=== PATIENT | male | born 1960 | race Two or more races ===

== ENCOUNTER 2020-07-15 18:04 | Inpatient (IN) | payer SELFPAY ==
[~2020-07-15] VITALS: Ht 170.2 cm; Wt 98.9 kg
[2020-07-15] MEDS: ENOXAPARIN SODIUM 40 MG/0.4 ML DISP.SYRIN SQ SCH (00:29)
--- NOTE | 2020-07-15 18:10 | NUR ---
PARISH FROM HOME C/O SOB THE WHOLE DAY WORST WHEN AMBULATING. PATIENT A/OX2, WITH EPISODES OF CONFUSION. OCCITAN SPEAKING. CHANGED INTO A GOWN, ATTACHED TO THE STEREOTYPER HELPER. SPO2 92% ON ROOM AIR.
[2020-07-15] MEDS ORDERED: ACETAMINOPHEN 325 MG TABLET ONE (18:24)
[2020-07-15] MEDS ORDERED: AZITHROMYCIN 500 MG VIAL ONE (18:24)
[2020-07-15] MEDS ORDERED: CEFTRIAXONE 1GM BAG (ER ONLY) 50 ML IV ONE (18:24)
--- NOTE | 2020-07-15 18:25 | NUR ---
IV LINE ESTABLISHED, BLOOD DRAWN AND SENT TO LAB.
[2020-07-15 18:29] LABS: BASOPHILS % (AUTO) 0.3 % (0.0-2.0); HEMATOCRIT 37 % (39-51); HEMOGLOBIN 12.5 g/dL (13.5-17.5); LYMPHOCYTES # (AUTO) 0.6 /CMM (0.8-4.8); LYMPHOCYTES % (AUTO) 4.2 % (20.0-44.0); MEAN CORPUSCULAR HGB CONC 34 g/dl (31.0-36.0); MEAN CORPUSCULAR VOLUME 94 fL (80-96); MONOCYTES # (AUTO) 0.7 /CMM (0.1-1.30); MONOCYTES % (AUTO) 4.6 % (2.0-12.0); NEUTROPHILS # (AUTO) 13.3 /CMM (1.8-8.9); NEUTROPHILS % (AUTO) 90.9 % (43.0-81.0); PLATELET COUNT (AUTO) 109 /CMM (150-450); RED BLOOD CELL COUNT(AUTO) 3.97 MIL/uL (4.5-6.0); WHITE BLOOD COUNT (AUTO) 14.6 K/uL (4.3-11.0)
[2020-07-15] MEDS ORDERED: ACETAMINOPHEN 325 MG TABLET PO ONE (18:30)
[2020-07-15] MEDS ORDERED: AZITHROMYCIN 500 MG in IV D5W 250 ML IV ONE (18:30)
[2020-07-15] MEDS ORDERED: CEFTRIAXONE 1GM BAG (ER ONLY) 1 GM/50 ML PIGGYBACK IV ONE (18:30)
[2020-07-15 18:46] LABS: CALCIUM, SERUM 8.6 mg/dL (8.5-10.1); CARBON DIOXIDE 23 mmol/L (21-32); CHLORIDE 90 mmol/L (98-107); CREATININE 1.2 mg/dL (0.6-1.3); GLUCOSE 225 mg/dL (74-106); POTASSIUM 2.9 mmol/L (3.5-5.1); SODIUM SERUM 126 mmol/L (136-145); UREA NITROGEN, BLOOD 16 mg/dL (7-18)
[2020-07-15 18:52] LABS: ALANINE AMINOTRANSFERASE 42 U/L (12-78); ALBUMIN 2.7 g/dL (3.4-5.0); ALKALINE PHOSPHATASE 92 U/L (46-116); ASPARTATE AMINOTRANSFERASE 106 U/L (15-37); BILIRUBIN,DIRECT 0.5 mg/dL (0.0-0.2); LIPASE 547 U/L (73-393); TOTAL PROTEIN, SERUM 7.9 g/dL (6.4-8.2)
[2020-07-15 18:58] LABS: B-TYPE NATRIURETIC PEPTIDE 739 PG/ML (0-125)
[2020-07-15] MEDS ORDERED: IV NS 0.9% 1,000 ML BAG IV ONE (19:30)
[2020-07-15] MEDS: Magnesium 1GM/D5W 100ML PREMIX 100 ML IV SCH ×2 (19:40→20:38)
--- NOTE | 2020-07-15 19:40 | NUR ---
A NEW 18G PIV LINE STARTED ON L HAND W/ GOOD BLOOD RETURN. MG IV STARTED ORDERED . WILL CONT TO MONITOR,
--- NOTE | 2020-07-15 20:00 | NUR ---
PT REMOVED THE IV LINE ON L HAND. A NEW IV LINE STARTED ON R HAND. WILL CONT TO MONITOR ,
--- NOTE | 2020-07-15 20:11 | NUR ---
RT AT BED SIDE TO PLACE PT ON BIPAP
[2020-07-15] MEDS: POTASSIUM CL. PREMIX PERIPHER. 50 ML IV SCH ×4 (20:13→23:12)
[2020-07-15] MEDS ORDERED: POTASSIUM CL. PREMIX PERIPHER. 100 ML ONE (22:24)
[2020-07-15] MEDS ORDERED: ACETAMINOPHEN 325 MG TABLET PO PRN (23:00)
[2020-07-15] MEDS ORDERED: ONDANSETRON HCL/PF 4 MG/2 ML VIAL IVP PRN (23:00)
[2020-07-15] MEDS ORDERED: MAGNESIUM HYDROXIDE 30 ML UDC PO PRN (23:00)
[2020-07-15] MEDS ORDERED: MAG HYDROX/AL HYDROX/SIMETH 30 ML UDC PO PRN (23:00)
[2020-07-15] MEDS ORDERED: Z GUARD REMEDY 2 OZ OINT TP PRN (23:00)
[2020-07-15] MEDS ORDERED: ZOLPIDEM TARTRATE 5 MG TABLET PO PRN (23:00)
[2020-07-15] MEDS ORDERED: HYDROCODONE/APAP 5/325MG TABLET PO PRN (23:00)
--- NOTE | 2020-07-15 23:00 | NUR ---
RT EKG DONE ON PT, RESULTS GIVEN TO NORA DEY
--- NOTE | 2020-07-15 23:17 | NUR ---
CALLED AFTER HOUR PHARMACY TO VERIFY THE ADMITTING ORDERS
[2020-07-16] MEDS ORDERED: ENOXAPARIN SODIUM 40 MG/0.4 ML DISP.SYRIN SQ ONE (00:25)
--- NOTE | 2020-07-16 02:49 | NUR ---
pt was taken off of the BIPAP and placed on O2 at 10 LPM via simple fac mask. will cont to monitor and reevaluate the pt.
[2020-07-16 05:14] LABS: BASOPHILS % (AUTO) 0.2 % (0.0-2.0); HEMATOCRIT 36 % (39-51); HEMOGLOBIN 12.2 g/dL (13.5-17.5); LYMPHOCYTES # (AUTO) 0.5 /CMM (0.8-4.8); LYMPHOCYTES % (AUTO) 3.7 % (20.0-44.0); MEAN CORPUSCULAR HGB CONC 34 g/dl (31.0-36.0); MEAN CORPUSCULAR VOLUME 94 fL (80-96); MONOCYTES # (AUTO) 0.9 /CMM (0.1-1.30); MONOCYTES % (AUTO) 6.6 % (2.0-12.0); NEUTROPHILS # (AUTO) 11.9 /CMM (1.8-8.9); NEUTROPHILS % (AUTO) 89.5 % (43.0-81.0); PLATELET COUNT (AUTO) 109 /CMM (150-450); RED BLOOD CELL COUNT(AUTO) 3.88 MIL/uL (4.5-6.0); WHITE BLOOD COUNT (AUTO) 13.3 K/uL (4.3-11.0)
--- NOTE | 2020-07-16 05:15 | NUR ---
RT ORDERED EKG Q6 COMPLETED. PRINT OUT OF RESULTS GIVEN TO NORA DEY.
[2020-07-16 05:36] LABS: CALCIUM, SERUM 8.9 mg/dL (8.5-10.1); CREATININE 0.9 mg/dL (0.6-1.3); MAGNESIUM 2.4 mg/dL (1.8-2.4); PHOSPHORUS 2.6 mg/dL (2.5-4.9); POTASSIUM 3.6 mmol/L (3.5-5.1)
[2020-07-16 05:41] LABS: THYROID STIMULATING HORMONE 1.767 uIU/mL (0.358-3.74)
--- NOTE | 2020-07-16 06:40 | NUR ---
PT WAS TRANSFERRED TO [facility] UNDER ACLS
[2020-07-16 06:45] VITALS: BP 176/90
--- NOTE | 2020-07-16 06:46 | NUR ---
TELE-TD/CORE PASTER RECEIVED PT ACCOMPANIED BY ER STAFF TO ROOM 113-1. PT WAS ABLE TO TRANSFER HIMSELF FROM [facility] TO BED WITH SOME COACHING. PT IS AUDIBLY WHEEZING. RESPIRATORY RATE IS ELEVATED AND SLIGHTLY LABORED. PT IS ALSO NOTED TO BE DIAPHORETIC. PT IS ON 10L SIMPLE MASK. SPO2 100% AT THIS TIME. PT PLACED IN HOSPITAL GOWN. PLACED ON TELE MONITOR NORMAL SINUS RHYTHM. BED IN LOWEST LOCKED POSITION. SIDE RAILS UP. BED ALARM ON WILL CONTINUE TO MONITOR.
--- NOTE | 2020-07-16 07:34 | NUR ---
YOUSUF RN NOTE PATIENT IN BED AWAKE ALERT WITH CONFUSION , ON 10 SIMPLE MASK ,SATURATION 96% NOTED WITH CHEST CONGESTION ,ON TELE MONITOR HR 96, RT AC HL INTACT AND FLUSHED WELL BED IN LOWEST AND LOCKED POSITION NOTED WITH LABORED RESPIRATION BED IN LOWEST AND LOCKED POSITION , PLAN OF CARE DISCUSSED WITH PATIENT, CHEST X RAY DONE ORDERED , CALL LIGHT WITHIN REACH
[2020-07-16] MEDS: PANTOPRAZOLE 40 MG TABLET.DR PO SCH (07:47)
[2020-07-16 08:00] VITALS: BP 152/88
--- NOTE | 2020-07-16 09:01 | NUR ---
telephone exchange operator note rt at bedside stated that will do abg latter om patient feels a little better ,placed on 4l nc saturation 96% ,will monitor
--- NOTE | 2020-07-16 09:37 | NUR ---
YOUSUF RN NOTE SEEN BY DR BRICENO AND DR RIVERA AWARE THAT PATIENT HAS SEVERE CHEST CONGESTION
[2020-07-16] MEDS: DEXAMETHASONE SOD PHOSPHATE 10 MG/ML VIAL IV SCH (09:50)
[2020-07-16] MEDS: FUROSEMIDE 40 MG/4 ML VIAL IV SCH ×3 (09:50→17:37)
[2020-07-16] MEDS: POTASSIUM CHLORIDE 20 MEQ TAB.PRT.SR PO SCH ×3 (09:51→12:14)
--- NOTE | 2020-07-16 11:10 | NUR ---
stephan rn note seen by dr Pearson show aware of severe chest congestion and need admission orders
--- NOTE | 2020-07-16 11:45 | NUR ---
stephan rn note Michel avendano clinical research coordinator aware that urine is dark yasmin color ,no new order given at this time with dvt pumps placed as ordered
[2020-07-16 12:00] VITALS: BP 130/91
[2020-07-16] MEDS: LORAZEPAM INJ 2 MG/ML VIAL IV PRN ×2 (13:06→21:59)
--- NOTE | 2020-07-16 13:30 | NUR ---
YOUSUF RN NOTE PER JONATHAN MELENDEZ SALES AND IN HOME DELIVERY SPECIALIST OK TO GIVE ATIVAN 1 MG IV ,PATIENT HAS ALCOHOL WITHDRAWAL SYMPTOMS , PER RN MARGRET CASTILLO PATIENT DRINKS BEER EVERY DAY , BP 148/78 ,SATURATION 97% WILL MONITOR
--- NOTE | 2020-07-16 14:42 | NUR ---
YOUSUF RN NOTE 2D ECHO DONE ORDERED
--- NOTE | 2020-07-16 15:00 | NUR ---
YOUSUF MELENDEZ NOTE CALLED TO JONATHAN MELENDEZ SUSPENSION CORD TIER NOTIFIED THAT PER LAB PRELIMINARY REPORT BLOOD CX GRAM POSITIVE COCCI IN CHAIN WITH ORDER TO CALL MANDIE MELENDEZ ID ,WILL F\U
--- NOTE | 2020-07-16 15:30 | NUR ---
YOUSUF MELENDEZ NOTE CALLED TO MANDIE MELENDEZ NP INFECTION DISEASE PER JONATHAN MUÑOZ RN MEDICAL RECORD CLERK FOR ID CONSULT STATED THAT WILL COME SOON Addendum: 07/16/20 at 1543 by MARLENE DIEZ RN UNABLE TO COLLECT UA SPECIMEN PATIENT STATED THAT CANT URINATE AT THIS TIME, NO STRAIGHT CATH PER JONATHAN MELENDEZ MEDICAL RECORD CLERK , WILL CONT TO TRY TO GET UA
[2020-07-16 16:06] VITALS: BP 110/80
[2020-07-16] MEDS: CHLORDIAZEPOXIDE HCL 25 MG CAPSULE PO SCH (16:51)
[2020-07-16] MEDS: CEFTRIAXONE 1 G in IV D5W 50 ML IV SCH (17:14)
--- NOTE | 2020-07-16 17:15 | NUR ---
YOUSUF RN NOTE UA COLLECTED ORDERED ,KEEP CLEAN DRY ,CALLED LAB TO INSTRUMENTATION AND CONTROL TECHNICIAN UA SPECIMEN
[2020-07-16] MEDS: AZITHROMYCIN 500 MG in IV D5W 250 ML IV SCH (17:47)
--- NOTE | 2020-07-16 18:19 | NUR ---
YOUSUF RN NOTE OK TO PLACE CONDOM CATH TO MONITOR URINE OUT PUT PER JONATHAN MELENDEZ IT CORPORATE RECRUITER
[2020-07-16 18:44] LABS: BILIRUBIN,URINE NEGATIVE (NEGATIVE); COLOR,URINE YELLOW (YELLOW); LEUKOCYTE ESTERASE ,URINE NEGATIVE (NEGATIVE); NITRITE, URINE NEGATIVE (NEGATIVE); PH,URINE 5.5 (5.0-8.0); PROTEIN,URINE 30 mg/dl (NEGATIVE); UGLUCOSE NEGATIVE (NEGATIVE)
--- NOTE | 2020-07-16 19:50 | NUR ---
RN OPENING NOTES RECEIVED PT IN BED. A/O X 1 CONFUSED, COOPERATIVE. PT IS ON 4L OF OXYGEN VIA NASAL CANNULA, TOLERATING WELL. SATURATION IS 96% AT THIS TIME. PT IS NOT IN ANY RESP DISTRESS NOT EXPERIENCING SOB. PT IS SHAKING SLIGHTLY, BASELINE TO PT. IV SITE IS FLUSHED, RIGHT AC AND RIGHT HAND. NO S/S OF INFILTRATION NOTED. SAFETY MEASURES IN PLACE, ISOLATION PER R/O COVID PRECAUTIONS, HEAD OF BED ELEVATED. SIDE RAILS UP X2. BED LOCKED IN LOWEST POSITION BED ALARM ON. CALL LIGHT WITHIN REACH. WILL CONT TO MONITOR.
--- NOTE | 2020-07-16 19:50 | NUR ---
RN OPENING NOTES RECEIVED PT IN BED. A/O X1, CONFUSED, ON 4L VIA NASAL CANNULA. TOLERATING WELL. NO SOB OR RESPIRATORY DISTRESS NOTED AT THIS TIME. PT SATURATING AT 96% PT IS ON TELE MONITOR PT HR 85. PT HAS IV ON RIGHT AC AND RIGHT HAND, FLUSHED. NO S/S OF INFILTRATION. PT DENIES PAIN AT THIS TIME. GENERALIZED, SLIGHT SHAKINESS NOTED. BASELINE TO PT HX OF ALCOHOL USE. WITHDRAWAL PRECAUTIONS IN PLACE. SAFETY MEASURES IN PLACE, HOB ELEVATED TOLERATED. BED LOCKED IN LOWEST POSITION. SIDE RAILS UP X2. CALL LIGHT WITHIN REACH. WILL CONT TO MONITOR. Addendum: 07/17/20 at 0005 by ELLE LOPEZ RN DISREGARD THIS NOTE
[2020-07-16 19:51] LABS: BACTERIA,URINE RARE /HPF (None Seen); WBC,URINE 0-2 /HPF (0-3)
[2020-07-16 19:52] LABS: HYALINE CASTS, URINE RARE /LPF (None Seen)
[2020-07-16 20:00] VITALS: BP 136/83
[2020-07-16] MEDS ORDERED: IV NS 0.9% 1,000 ML IV ONE (20:00)
[2020-07-16 20:39] LABS: SQUAMOUS EPITHELIAL CELL,UR 0-2 /HPF (None Seen)
[2020-07-16] MEDS: ENOXAPARIN SODIUM 40 MG/0.4 ML DISP.SYRIN SQ SCH (21:16)
--- NOTE | 2020-07-16 22:06 | NUR ---
PRN ATIVAN ADMINISTERED D/T PT AGITATED AND RESTLESS, CONFUSED HX OF ALCOHOL CONSUMPTION/WITHDRAWAL SYMPTOMS. WILL CONT TO CLOSELY MONITOR. PT O2 SAT 96% BP 136/83
[2020-07-17] VITALS: BP 156/93
--- NOTE | 2020-07-17 00:09 | NUR ---
LAB RESULTS REPORTED VIA JO, PCR INDETERMINATE. NOTIFIED SERVICES CLERK DR LLANOS, ORDER FOR REPEAT CARRIED OUT.
[2020-07-17 04:00] VITALS: BP 149/95
[2020-07-17 06:09] LABS: BASOPHILS % (AUTO) 0.4 % (0.0-2.0); HEMATOCRIT 38 % (39-51); HEMOGLOBIN 12.8 g/dL (13.5-17.5); LYMPHOCYTES # (AUTO) 0.5 /CMM (0.8-4.8); LYMPHOCYTES % (AUTO) 4.6 % (20.0-44.0); MEAN CORPUSCULAR HGB CONC 34 g/dl (31.0-36.0); MEAN CORPUSCULAR VOLUME 94 fL (80-96); MONOCYTES # (AUTO) 0.7 /CMM (0.1-1.30); NEUTROPHILS # (AUTO) 9.2 /CMM (1.8-8.9); PLATELET COUNT (AUTO) 172 /CMM (150-450); RED BLOOD CELL COUNT(AUTO) 4.01 MIL/uL (4.5-6.0); WHITE BLOOD COUNT (AUTO) 10.5 K/uL (4.3-11.0)
[2020-07-17 06:33] LABS: ALBUMIN 2.3 g/dL (3.4-5.0); BILIRUBIN,TOTAL 0.6 mg/dL (0.2-1.0); CALCIUM, SERUM 9.1 mg/dL (8.5-10.1); CREATININE 0.8 mg/dL (0.6-1.3); MAGNESIUM 2.5 mg/dL (1.8-2.4); PHOSPHORUS 3.8 mg/dL (2.5-4.9); POTASSIUM 4.2 mmol/L (3.5-5.1); TOTAL PROTEIN, SERUM 7.9 g/dL (6.4-8.2)
--- NOTE | 2020-07-17 06:36 | NUR ---
RN CLOSING NOTES PT REMAINS IN BED, NO CHANGE IN PT CONDITION, PT IS VERY AGITATED WHEN INITIALLY WOKEN UP FROM SLEEPING, ATIVAN PRN ADMINISTERED. STILL IS CONFUSED BUT PT IS COOPERATIVE OVERALL, ALL DUE MEDS GIVEN, NEEDS ATTENDED. SAFETY MEASURES IN PLACE. HOB ELEVATED. SIDE RAILS X2, BED LOCKED IN LOWEST POSITION WITH BED ALARM SENIOR ANIMATOR LIGHT WITHIN REACH. WILL ENDORSE TO DAY NURSE FOR CONTINUATION OF CARE.
--- NOTE | 2020-07-17 07:25 | NUR ---
RN OPENING NOTES PATIENT RECEIVED IN BED RESTING COMFORTABLE. PATIENT IS ON O2 THERAPY VIA NC AT 4 LPM TOLERATING WELL. SAFETY MEASURES IMPLEMENTED. HOB ELEVATED. SIDE RAILS UP X2, BED LOCKED IN LOWEST POSITION, CALL LIGHT WITHIN REACH. WILL CONTINUE TO MONITOR AND PROVIDE CARE THROUGHOUT SHIFT.
[2020-07-17 08:00] VITALS: BP 127/88
[2020-07-17] MEDS: PANTOPRAZOLE 40 MG TABLET.DR PO SCH (08:59)
[2020-07-17] MEDS: FOLIC ACID 1 MG TABLET PO SCH (09:00)
[2020-07-17] MEDS: DEXAMETHASONE SOD PHOSPHATE 10 MG/ML VIAL IV SCH (09:00)
[2020-07-17] MEDS: THIAMINE HCL 100 MG TABLET PO SCH (09:01)
[2020-07-17] MEDS: CHLORDIAZEPOXIDE HCL 25 MG CAPSULE PO SCH ×2 (09:01→16:18)
[2020-07-17 12:00] VITALS: BP 126/86
[2020-07-17 16:00] VITALS: BP 138/81
[2020-07-17] MEDS: CEFTRIAXONE 1 G in IV D5W 50 ML IV SCH (17:02)
[2020-07-17] MEDS: AZITHROMYCIN 500 MG in IV D5W 250 ML IV SCH (17:54)
--- NOTE | 2020-07-17 19:15 | NUR ---
RN CLOSING NOTES PATIENT IN BED RESTING COMFORTABLY. PATIENT IS ON O2 THERAPY VIA NC AT 4 LPM TOLERATING WELL. SAFETY MEASURES IMPLEMENTED. HOB ELEVATED. SIDE RAILS UP X2, BED LOCKED IN LOWEST POSITION, CALL LIGHT WITHIN REACH. WILL ENDORSE CARE TO UPCOMING SHIFT.
[2020-07-17 20:00] VITALS: BP 137/71
[2020-07-17] MEDS: ENOXAPARIN SODIUM 40 MG/0.4 ML DISP.SYRIN SQ SCH (21:33)
[2020-07-18] VITALS: BP 130/78
[2020-07-18 04:00] VITALS: BP 125/82
[2020-07-18 06:32] LABS: BASOPHILS % (AUTO) 0.3 % (0.0-2.0); EOSINOPHILS % (AUTO) 0.1 % (0.0-6.0); HEMATOCRIT 38 % (39-51); HEMOGLOBIN 12.8 g/dL (13.5-17.5); LYMPHOCYTES # (AUTO) 0.7 /CMM (0.8-4.8); LYMPHOCYTES % (AUTO) 8.2 % (20.0-44.0); MEAN CORPUSCULAR HGB CONC 34 g/dl (31.0-36.0); MEAN CORPUSCULAR VOLUME 94 fL (80-96); MONOCYTES # (AUTO) 0.7 /CMM (0.1-1.30); MONOCYTES % (AUTO) 8.7 % (2.0-12.0); NEUTROPHILS # (AUTO) 6.8 /CMM (1.8-8.9); NEUTROPHILS % (AUTO) 82.7 % (43.0-81.0); PLATELET COUNT (AUTO) 203 /CMM (150-450); RED BLOOD CELL COUNT(AUTO) 4.05 MIL/uL (4.5-6.0); WHITE BLOOD COUNT (AUTO) 8.2 K/uL (4.3-11.0)
[2020-07-18 06:51] LABS: CALCIUM, SERUM 8.9 mg/dL (8.5-10.1); CREATININE 0.7 mg/dL (0.6-1.3); MAGNESIUM 2.2 mg/dL (1.8-2.4)
--- NOTE | 2020-07-18 07:30 | NUR ---
TELEMETRY OPENING NOTES PATIENT IN BED, RESTING COMFORTABLY. ALERT/ORIENTED X2-3; ABLE TO MAKE NEEDS KNOWN. CURRENTLY ON 4L O2 THERAPY VIA NASAL CANNULA. O2 SATURATION 98%. NO S/S OF RESPIRATORY DISTRESS AT THIS TIME. SKIN INTACT. PATIENT IS ON A CARDIAC DIET. R WRIST 20 G IV NOTED. ALL SAFETY MEASURES IN PLACE PER HOSPITAL POLICY. CALL LIGHT WITHIN REACH. BED LOCKED IN LOWEST POSITION, WILL CONTINUE TO MONITOR AND PROVIDE TREATMENT.
[2020-07-18 08:00] VITALS: BP 150/88
[2020-07-18] MEDS: THIAMINE HCL 100 MG TABLET PO SCH (08:32)
[2020-07-18] MEDS: PANTOPRAZOLE 40 MG TABLET.DR PO SCH (08:32)
[2020-07-18] MEDS: CHLORDIAZEPOXIDE HCL 25 MG CAPSULE PO SCH ×2 (08:32→16:41)
[2020-07-18] MEDS: FOLIC ACID 1 MG TABLET PO SCH (08:32)
[2020-07-18] MEDS: DEXAMETHASONE SOD PHOSPHATE 10 MG/ML VIAL IV SCH (08:33)
[2020-07-18] MEDS ORDERED: IV NS 0.9% 1,000 ML IV ONE (14:30)
[2020-07-18] MEDS: ERYTHROMYCIN BASE OPHTH 3.5 GM TUBE EACHEYE SCH ×2 (15:38→20:15)
[2020-07-18 16:00] VITALS: BP 123/75
[2020-07-18] MEDS: AZITHROMYCIN 500 MG in IV D5W 250 ML IV SCH (17:23)
[2020-07-18] MEDS: CEFTRIAXONE 1 G in IV D5W 50 ML IV SCH (17:23)
--- NOTE | 2020-07-18 18:37 | NUR ---
TELEMETRY OPENING NOTES PATIENT IN BED, RESTING COMFORTABLY. ALERT/ORIENTED X2-3; ABLE TO MAKE NEEDS KNOWN. CURRENTLY ON 4L O2 THERAPY VIA NASAL CANNULA. O2 SATURATION 98%. NO S/S OF RESPIRATORY DISTRESS AT THIS TIME. SKIN INTACT. PATIENT IS ON A CARDIAC DIET. R FOREARM IV 22 G RUNNING NORMAL SALINE @ 80ML/HR. ALL SAFETY MEASURES IN PLACE PER HOSPITAL POLICY. CALL LIGHT WITHIN REACH. BED LOCKED IN LOWEST POSITION, WILL ENDORSE TO ASSISTED LIVING DIRECTOR NURSE FOR CONTINUATION OF CARE.
--- NOTE | 2020-07-18 19:25 | NUR ---
MS1 RN NOTES RECEIVED AWAKE,SITTING ON EDGE OF BED EATING HIS DINNER FOOD,O2 IN USED AT 4L/NC TO KEEP O2 SAT ABOVE 90%.AMBULATE WITH STEADY GAIT,IVF NS AT 80ML/HR RATE INFUSING WELL ON RFA SALINE LOCK VIA IV PUMP,SITE PATENT.FALL RISK,BED ALARM TRIGGERED.CALL LIGHT IN REACH,NEEDS ANTICIPATED.
[2020-07-18 20:00] VITALS: BP 154/77
[2020-07-18] MEDS: ENOXAPARIN SODIUM 40 MG/0.4 ML DISP.SYRIN SQ SCH (21:35)
--- NOTE | 2020-07-19 03:00 | NUR ---
MS1 RN NOTES PRESENT IVF COMPLETED
[2020-07-19] MEDS: ERYTHROMYCIN BASE OPHTH 3.5 GM TUBE EACHEYE SCH ×4 (03:05→21:13)
--- NOTE | 2020-07-19 03:09 | NUR ---
MS1 RN NOTES AWAKE,DUE ERYTHROMYCIN EYE OINTMENT ADMINISTERED TO BOTH EYES.
[2020-07-19 04:00] VITALS: BP 154/94
--- NOTE | 2020-07-19 06:21 | NUR ---
MS1 RN NOTES SLEPT WITH INTERVALS,ABLE TO AMBULATE TO THE RESTROOM WITH STANDBY ASSIST.NO EPISODE OF SOB NOTED.IVF COMPLETED.CALL LIGHT IN REACH,NEEDS ATTENDED.
[2020-07-19 06:51] LABS: BASOPHILS # (AUTO) 0.2 /CMM (0.0-0.2); BASOPHILS % (AUTO) 2.7 % (0.0-2.0); EOSINOPHILS % (AUTO) 0.4 % (0.0-6.0); HEMATOCRIT 39 % (39-51); HEMOGLOBIN 13.1 g/dL (13.5-17.5); LYMPHOCYTES # (AUTO) 0.6 /CMM (0.8-4.8); LYMPHOCYTES % (AUTO) 9.5 % (20.0-44.0); MEAN CORPUSCULAR HGB CONC 33 g/dl (31.0-36.0); MEAN CORPUSCULAR VOLUME 95 fL (80-96); MONOCYTES # (AUTO) 0.8 /CMM (0.1-1.30); MONOCYTES % (AUTO) 12.6 % (2.0-12.0); NEUTROPHILS # (AUTO) 4.8 /CMM (1.8-8.9); NEUTROPHILS % (AUTO) 74.8 % (43.0-81.0); PLATELET COUNT (AUTO) 229 /CMM (150-450); RED BLOOD CELL COUNT(AUTO) 4.15 MIL/uL (4.5-6.0); WHITE BLOOD COUNT (AUTO) 6.4 K/uL (4.3-11.0)
--- NOTE | 2020-07-19 07:20 | NUR ---
RN OPENING NOTES PATIENT RECEIVED IN BED RESTING COMFORTABLY. PATIENT IS ON O2 THERAPY VIA NC AT 4 LPM TOLERATING WELL. IV ACCESS INTACT AND PATENT. SAFETY MEASURES IMPLEMENTED. HOB ELEVATED. SIDE RAILS UP X2, BED LOCKED IN LOWEST POSITION, CALL LIGHT WITHIN REACH. WILL CONTINUE TO MONITOR AND PROVIDE CARE THROUGHOUT SHIFT.
[2020-07-19 08:46] LABS: CALCIUM, SERUM 8.7 mg/dL (8.5-10.1); CREATININE 0.7 mg/dL (0.6-1.3); POTASSIUM 3.9 mmol/L (3.5-5.1)
[2020-07-19] MEDS: PANTOPRAZOLE 40 MG TABLET.DR PO SCH (09:33)
[2020-07-19] MEDS: DEXAMETHASONE SOD PHOSPHATE 10 MG/ML VIAL IV SCH (09:33)
[2020-07-19] MEDS: FOLIC ACID 1 MG TABLET PO SCH (09:34)
[2020-07-19] MEDS: CHLORDIAZEPOXIDE HCL 25 MG CAPSULE PO SCH (09:35)
[2020-07-19] MEDS: THIAMINE HCL 100 MG TABLET PO SCH (09:35)
[2020-07-19 12:00] VITALS: BP 121/71
[2020-07-19] MEDS: CEFTRIAXONE 1 G in IV D5W 50 ML IV SCH (17:01)
--- NOTE | 2020-07-19 18:57 | NUR ---
RN CLOSING NOTES PATIENT IN BED RESTING COMFORTABLY. PATIENT IS ON O2 THERAPY VIA NC AT 2 LPM. PATIENT TITRATED DOWN, TOLERATING WELL. IV ACCESS INTACT AND PATENT. SAFETY MEASURES IMPLEMENTED, HOB ELEVATED. SIDE RAILS UP X2, BED LOCKED IN LOWEST POSITION, CALL LIGHT WITHIN REACH. WILL ENDORSE CARE TO UPCOMING SHIFT.
--- NOTE | 2020-07-19 19:45 | NUR ---
RN NOTES RECEIVED PT WALKING AROUND THE ROOM, STABLE GAIT. DENIES ANY SOB OR DIZZINESS. NOT IN ANY DISTRESS. ASSISTED BACK TO BED. PUT ON O2 VIA NC AT 2LPM. PT DENIES ANY PAIN ELSEWHERE. PT WITH RIGHT WRIST AND RFA IV. BOTH PATENT AND INTACT, WITH NO SIGNS OF INFECTION. WILL CONTINUE TO MONITOR, ALL SAFETY MEASURES IMPLEMENTED PER PROTOCOL, CALL LIGHT WITHIN REACH, BED LOCKED IN LOWEST POSITION. SIDE RAILS UP X 2.
[2020-07-19 20:00] VITALS: BP 129/79
[2020-07-19] MEDS: ENOXAPARIN SODIUM 40 MG/0.4 ML DISP.SYRIN SQ SCH (21:29)
[2020-07-20] MEDS: ERYTHROMYCIN BASE OPHTH 3.5 GM TUBE EACHEYE SCH ×4 (03:00→21:03)
[2020-07-20 04:00] VITALS: BP 139/74
--- NOTE | 2020-07-20 06:44 | NUR ---
RN NOTE PT REMAIN IN BED. CONTINUE ON O2 THERAPY VIA NC AT 2LPM. NO DISTRESS NOTED. DENIES ANY SOB OR PAIN. ALL NEEDS ATTENDED. ALL SAFETY MEASURES MAINTAINED. CALL LIGHT WITHIN REACH AT ALL TIMES.
[2020-07-20 06:53] LABS: BASOPHILS % (AUTO) 0.1 % (0.0-2.0); EOSINOPHILS % (AUTO) 0.4 % (0.0-6.0); HEMATOCRIT 42 % (39-51); HEMOGLOBIN 13.7 g/dL (13.5-17.5); LYMPHOCYTES # (AUTO) 0.8 /CMM (0.8-4.8); LYMPHOCYTES % (AUTO) 11.1 % (20.0-44.0); MEAN CORPUSCULAR HGB CONC 33 g/dl (31.0-36.0); MEAN CORPUSCULAR VOLUME 96 fL (80-96); MONOCYTES # (AUTO) 0.6 /CMM (0.1-1.30); MONOCYTES % (AUTO) 8.3 % (2.0-12.0); NEUTROPHILS # (AUTO) 5.6 /CMM (1.8-8.9); NEUTROPHILS % (AUTO) 80.1 % (43.0-81.0); PLATELET COUNT (AUTO) 256 /CMM (150-450); RED BLOOD CELL COUNT(AUTO) 4.36 MIL/uL (4.5-6.0); WHITE BLOOD COUNT (AUTO) 6.9 K/uL (4.3-11.0)
[2020-07-20 06:58] LABS: CALCIUM, SERUM 8.8 mg/dL (8.5-10.1); CREATININE 0.6 mg/dL (0.6-1.3); POTASSIUM 4.1 mmol/L (3.5-5.1)
--- NOTE | 2020-07-20 07:15 | NUR ---
RN OPENING NOTES PATIENT IN BED RESTING COMFORTABLY. PATIENT IS ON O2 THERAPY VIA NC AT 2 LPM, TOLERATING WELL. IV ACCESS INTACT AND PATENT. SAFETY MEASURES IMPLEMENTED, HOB ELEVATED. SIDE RAILS UP X2, BED LOCKED IN LOWEST POSITION, CALL LIGHT WITHIN REACH. WILL CONTINUE TO MONITOR AND PROVIDE CARE THROUGHOUT SHIFT.
[2020-07-20] MEDS: PANTOPRAZOLE 40 MG TABLET.DR PO SCH (08:06)
[2020-07-20] MEDS: CHLORDIAZEPOXIDE HCL 25 MG CAPSULE PO SCH (08:06)
[2020-07-20] MEDS: FOLIC ACID 1 MG TABLET PO SCH (08:06)
[2020-07-20] MEDS: THIAMINE HCL 100 MG TABLET PO SCH (08:06)
[2020-07-20] MEDS: DEXAMETHASONE SOD PHOSPHATE 10 MG/ML VIAL IV SCH (08:07)
[2020-07-20 08:32] LABS: BAND % (MANUAL) 2 % (0.0-5.0); LYMPHOCYTES % (MANUAL) 18 % (16-48); METAMYELOCYTES % 1 % (0-0); MONOCYTES % (MANUAL) 8 % (0-11.0); MYELOCYTES % 1 % (0-0); NEUTROPHILS % (MANUAL) 70 (42-76)
[2020-07-20 12:00] VITALS: BP 120/76
[2020-07-20] MEDS: CEFTRIAXONE 1 G in IV D5W 50 ML IV SCH (17:50)
--- NOTE | 2020-07-20 19:04 | NUR ---
RN CLOSING NOTES PATIENT IN BED RESTING COMFORTABLY. PATIENT IS ON O2 THERAPY VIA NC AT 2 LPM, TOLERATING WELL. IV ACCESS INTACT AND PATENT. SAFETY MEASURES IMPLEMENTED, HOB ELEVATED. SIDE RAILS UP X2, BED LOCKED IN LOWEST POSITION, CALL LIGHT WITHIN REACH. WILL ENDORSE CARE TO UPCOMING SHIFT.
--- NOTE | 2020-07-20 19:30 | NUR ---
RN NOTES RECEIVED PT IN BED, ON O2 THERAPY VIA NC AT 2LPM, DENIES ANY SOB, NOT IN ANY DISTRESS. PT DENIES ANY PAIN. PT WITH RFA IV, PATENT AND INTACT, FLUSHED. WITH NO SIGNS OF INFECTION. WILL CONTINUE TO MONITOR, ALL SAFETY MEASURES IMPLEMENTED PER PROTOCOL, CALL LIGHT WITHIN REACH, BED LOCKED IN LOWEST POSITION. SIDE RAILS UP X 2.
[2020-07-20 20:00] VITALS: BP 138/78
[2020-07-20] MEDS: ENOXAPARIN SODIUM 40 MG/0.4 ML DISP.SYRIN SQ SCH (21:04)
[2020-07-21] MEDS: ERYTHROMYCIN BASE OPHTH 3.5 GM TUBE EACHEYE SCH ×3 (02:30→14:35)
[2020-07-21 04:00] VITALS: BP 129/80
[2020-07-21 05:56] LABS: BASOPHILS % (AUTO) 0.3 % (0.0-2.0); EOSINOPHILS % (AUTO) 0.6 % (0.0-6.0); HEMATOCRIT 43 % (39-51); HEMOGLOBIN 14.4 g/dL (13.5-17.5); LYMPHOCYTES # (AUTO) 0.9 /CMM (0.8-4.8); LYMPHOCYTES % (AUTO) 11.5 % (20.0-44.0); MEAN CORPUSCULAR HGB CONC 34 g/dl (31.0-36.0); MEAN CORPUSCULAR VOLUME 94 fL (80-96); MONOCYTES # (AUTO) 0.4 /CMM (0.1-1.30); MONOCYTES % (AUTO) 4.9 % (2.0-12.0); NEUTROPHILS # (AUTO) 6.7 /CMM (1.8-8.9); NEUTROPHILS % (AUTO) 82.7 % (43.0-81.0); PLATELET COUNT (AUTO) 270 /CMM (150-450); RED BLOOD CELL COUNT(AUTO) 4.56 MIL/uL (4.5-6.0); WHITE BLOOD COUNT (AUTO) 8.1 K/uL (4.3-11.0)
[2020-07-21 06:26] LABS: CALCIUM, SERUM 8.8 mg/dL (8.5-10.1); CREATININE 0.6 mg/dL (0.6-1.3)
--- NOTE | 2020-07-21 07:09 | NUR ---
RN CLOSING NOTES PT REMAINS IN BED. CONTINUE ON O2 THERAPY, TOLERATING, NO SIGNS OF DISTRESS NOTED. PT CONTINUE ON ERYTHROMYCIN OINTMENT, REDNESS ON EYES STILL NOTED. PT DENIES ANY PAIN OR ITCH. PT REMAIN AFEBRILE. ALL SAFETY MEASURES MAINTAINED. CALL LIGHT WITHIN REACH AT ALL TIMES. WILL ENDORSE TO NEXT SHIFT NURSE FOR SAEID.
--- NOTE | 2020-07-21 07:10 | NUR ---
RN OPENING NOTES RECEIVED PT IN BED, AWAKE. A/O X3. ON 2L O2 VIA NC SATING @98%. NO SOB OR ANY RESPIRATORY DISTRESS. NO PAIN REPORTED AT THIS TIME. IV ACCESS AT RFA #22 INTACT, PATENT AND FLUSHED. ALL SAFETY MEASURES IMPLEMENTED. CALL LIGHT WITHIN REACH. BED LOCKED IN LOWEST POSITION WITH SIDE RAILS UP X2. WILL CONTINUE TO MONITOR.
[2020-07-21] MEDS: DEXAMETHASONE SOD PHOSPHATE 10 MG/ML VIAL IV SCH (08:34)
[2020-07-21] MEDS: FOLIC ACID 1 MG TABLET PO SCH (08:34)
[2020-07-21] MEDS: THIAMINE HCL 100 MG TABLET PO SCH (08:34)
[2020-07-21] MEDS: PANTOPRAZOLE 40 MG TABLET.DR PO SCH (08:34)
[2020-07-21] MEDS ORDERED: AMOX-430 PO (10:44)
[2020-07-21 12:00] VITALS: BP 116/66
[2020-07-21] MEDS: CEFTRIAXONE 1 G in IV D5W 50 ML IV SCH (17:25)
--- NOTE | 2020-07-21 19:35 | NUR ---
RN CLOSING NOTES PT FOR DISCHARGE, WAITING FOR PICKUP. DISCHARGE INSTRUCTIONS GIVEN. VERBALIZED UNDERSTANDING. REFUSED VACCINES DESPITE EDUCATION X3. WILL CONSIDER RECEIVING ELSEWHERE. SKIN IS INTACT. NO PAIN REPORTED. WILL ENDORSE TO NIGHT NURSE FOR SAEID.
--- NOTE | 2020-07-21 19:45 | NUR ---
RN CLOSING PATIENT DISCHARGE IN STABLE CONDITION NO SOB NOT ACUTE DISTRESS NOTED,PATIENT DAUGHTER PICKED HIM UP AND DISCHARGE BY PRIVATE CAR WITH ALL BELONGINGS.
== END 2020-07-21 19:45 | disposition home or self-care (01) | DRG 871 ==
LOC: ER 18:06 → TELE1 07-16 04:41 → TELE-TD 07-16 06:54 → TELE1 07-17 12:10 → MEDSG1 07-18 08:03
PROVIDERS: ATTEND Student in an Organized Health Care Education/Training Program
DX: A41.9 Sepsis, unspecified organism (principal); I50.33 Acute on chronic diastolic (congestive) heart failure; J96.01 Acute respiratory failure with hypoxia; J13 Pneumonia due to Streptococcus pneumoniae; E87.1 Hypo-osmolality and hyponatremia; M62.82 Rhabdomyolysis; F10.239 Alcohol dependence with withdrawal, unspecified; E87.6 Hypokalemia; I11.0 Hypertensive heart disease with heart failure; R74.8 Abnormal levels of other serum enzymes; R73.9 Hyperglycemia, unspecified; G47.33 Obstructive sleep apnea (adult) (pediatric); E66.01 Morbid (severe) obesity due to excess calories; E88.09 Other disorders of plasma-protein metabolism, not elsewhere classified; Z20.822 Contact with and (suspected) exposure to COVID-19; M85.80 Other specified disorders of bone density and structure, unspecified site; Z68.34 Body mass index [BMI] 34.0-34.9, adult; H10.9 Unspecified conjunctivitis; I70.0 Atherosclerosis of aorta
CPT/HCPCS: 36415; 70450-TC; 71045-TC; 80048-TC; 80053-TC; 80061-TC; 80076-TC; 81001; 82550-TC; 82553; 82728-TC; 83605-TC; 83615-TC; 83690-TC; 83735-TC; 83880; 84100-TC; 84443-TC; 84484-TC; 85025-TC; 85378-TC; 85730-TC; 86140-TC; 87040-TC; 87081-TC; 87186-TC; 93307-TC; 94660; A4349; C9803; G0378; G0480; J0456; J0696; J1100; J1650; J1940; J2060; J3475; J3480; J7030; J7050; J7060; U0003